=== PATIENT | male | born 1945 | race Caucasian/White ===

== ENCOUNTER 2017-02-07 08:54 | Day surgery (SDC) | payer BC ==
[2017-02-05 13:25] LABS: BASOPHILS 0.6 %; BASOPHILS ABSOLUTE 0.04 10/3/uL (0.0-0.16); EOSINOPHILS 2.1 %; EOSINOPHILS ABSOLUTE 0.13 10/3/uL (0.0-0.53); HEMOGLOBIN 15.1 g/dL (13.6-17.8); IMMATURE GRANULOCYTES 0.2 %; IMMATURE GRANULOCYTES ABSOLUTE 0.01 10/3/uL (0.0-0.11); LYMPHOCYTES 31.2 %; LYMPHOCYTES ABSOLUTE 1.93 10/3/uL (0.67-4.30); MANUAL DIFF NO %; MEAN CORPUS HGB CONC 34.3 g/dL (32.0-36.0); MEAN CORPUSCULAR HEMOGLOB 30.8 pg (26.0-34.0); MEAN CORPUSCULAR VOLUME 89.6 fL (80-100); MONOCYTES 6.9 %; MONOCYTES ABSOLUTE 0.43 10/3/uL (0.21-1.20); NEUTROPHILS ABSOLUTE 3.65 10/3/uL (2.02-8.40); PLATELET COUNT 189 10/3/uL (150-400); RBC DISTRIBUTION WIDTH 13.1 % (12.0-16.0); RED CELL COUNT 4.91 10/6/uL (4.7-6.1); WHITE BLOOD CELLS 6.2 10/3/uL (4.5-10.5)
[2017-02-05 13:44] LABS: A/G RATIO 1.2 (0.7-1.9); ALKALINE PHOSPHATASE 114 U/L (45-117); BUN (BLOOD UREA NITROGEN) 18 MG/DL (6-23); CHLORIDE, SERUM 106 MMOL/L (96-112); CO2 (CARBON DIOXIDE) 29 MMOL/L (24-34); CREATININE 0.99 MG/DL (0.70-1.30); GFR AFRICAN AMERICAN 89 ML/MIN (>=60); GFR NON AFRICAN AMERICAN 77 ML/MIN (>=60); GLOBULIN 3.4 G/DL (2.5-4.1); GLUCOSE, SERUM 118 MG/DL (60-99); POTASSIUM, SERUM 4.5 MMOL/L (3.5-5.3); SGOT(AST) 19 U/L (5-40); SGPT(ALT) 30 U/L (5-65); SODIUM, SERUM 142 MMOL/L (135-148); TOTAL BILIRUBIN 0.4 MG/DL (0-1.2); TOTAL PROTEIN 7.4 G/DL (6.0-8.5)
--- NOTE | ~2017-02-07 | OP ---
Record Of Operation [facility] [address] [place]. [address] NAME: TRUDY GONZALES : 47 STATUS : [facility]#: [id number] AGE: 71 ADM/REG DATE : 02/07/17 MR#: [id number] REPORT SERV DATE: 02/07/17 DICTATED BY: BLAYNE GONZALEZ DATE: 02/07/17 REPORT STATUS : Draft TRANSCRIBED BY: MODL DATE: 02/07/17 DATE OF PROCEDURE: 02/07/2017 PREOPERATIVE DIAGNOSIS: Elevated PSA. POSTOPERATIVE DIAGNOSIS: Elevated PSA. OPERATIVE PROCEDURE: Transrectal ultrasound-guided needle biopsy of the prostate. ANESTHESIA: Monitored anesthesia care (MAC). ESTIMATED BLOOD LOSS: 10 mL. SPECIMENS: Prostate x18 (3 right base, 3 right mid gland, 3 right apex, 3 left base, 3 left mid gland, 3 left apex). DRAINS: None. COMPLICATIONS: None. IMMEDIATE POSTOP: Satisfactory. DESCRIPTION OF PROCEDURE: The patient was brought into the cysto suite, given monitored anesthesia care by the anesthesia department, placed in the lateral decubitus position. Transrectal ultrasound probe containing a needle biopsy guide was then passed by the biomass plant technician. The gland was then imaged and measured. Gland measured 5.81 cm in length, 4.84 cm in height, 6.25 cm in width with a volume of 91.94 mL. The prostate had homogeneous appearance. Random biopsies were obtained in the pattern as described above using a disposable biopsy gun under ultrasound guidance. At close of the procedure, a Gel- Foam absorbable rectal packing was placed in the rectum, and the patient was awakened and sent to Phase 2 recovery in satisfactory condition. /ARANZA Blayne Gonzalez M.D. / [id number] CC: Glorai Vásquez M.D.
[~2017-02-07 08:54] MED LIST: ASAB PO; BEE POLLEN PO; FLONASE NAS; MULTIVIT/MIN PO; VITAMIN D31000 UNIT PO; VITC500 PO
== END 2017-02-07 13:14 | disposition home or self-care (01) ==
LOC: SDC 08:54
PROVIDERS: Urology
PROC: 0VB07ZX Excision of Prostate, Via Natural or Artificial Opening, Diagnostic (ICD-10-PCS; 2017-02-07)
PROC: BV49ZZZ Ultrasonography of Prostate and Seminal Vesicles (ICD-10-PCS; principal; 2017-02-07 10:00)
DX: N40.0 Benign prostatic hyperplasia without lower urinary tract symptoms (principal); H91.90 Unspecified hearing loss, unspecified ear; Z98.890 Other specified postprocedural states; Z90.49 Acquired absence of other specified parts of digestive tract; Z97.4 Presence of external hearing-aid; Z88.8 Allergy status to other drugs, medicaments and biological substances; Z88.2 Allergy status to sulfonamides; Z79.899 Other long term (current) drug therapy; Z79.82 Long term (current) use of aspirin; Z79.51 Long term (current) use of inhaled steroids
CPT/HCPCS: 36415; 71020; 76872; 80053; 85025; 88305; 93005; J2250; J3010